=== PATIENT | female | born 1995 | race Hispanic/Latino ===

== ENCOUNTER 2019-07-02 04:25 | Emergency (ER) | payer OTHER ==
[~2019-07-02] VITALS: Ht 170.2 cm; Wt 77.1 kg
--- OUTSIDE RECORDS SUMMARY | 2019-07-02 04:27 | XMS REPORT ---
Author Author [facility] Address Unknown Phone Unavailable Care Team Providers Care Supervisor Clam Bed Name Role Phone Unavailable Unavailable Payers Payer Name Policy Type Policy Number Effective Date Expiration Date Problems This patient has no known problems. Allergies, Adverse Reactions, Alerts Allergy Name Allergy Type Status Severity Reaction(s) Onset Date Inactive Date Treating Clinician Comments No Known Allergies DA Active U 2019-07-01 00:00:00 No Known Allergies DA Active U 2018-02-22 00:00:00 No Known Allergies DA Active U 2018-01-12 00:00:00 No Known Allergies DA Active U 2017-10-01 00:00:00 Medications This patient has no known medications. Encounters Start Date/Time End Date/Time Encounter Type Admission Type Attending [facility] Care Department Encounter ID 2018-08-22 11:55:00 2018-08-22 11:55:00 Emergency E [facility]NE [id number] Results Test Description Test Time Test Comments Text Results Atomic Results Result Comments - CT MAXIFAC W/CONTRAST 2019-07-01 10:59:00 Name: SHAUNA PAYTON [facility] FSED : 1995 Age/S: 24 / F [id number] [facility] [address] Unit #: [id number] Loc: [address] Phys: Nicole Stahl MD [place], [place] [address] Acct: [id number] Dis Date: Status: REG ER PHONE #: Exam Date: 07/01/2019 1041 FAX #: Reason: left facial pain/swelling EXAMS: CPT CODE: [id number] CT MAXIFAC W/CONTRAST [address]4441 EXAM: - CT MAXIFAC W/CONTRAST HISTORY: left facial pain/swelling TECHNIQUE: Axial images were obtained through the facial bones and orbits with IV contrast. Sagittal and coronal multiplanar reconstructions were created from the data. COMPARISON: None FINDINGS: The facial bones, including the mandible, are within normal limits. Specifically, there is no evidence of fracture, dislocation, or aggressive osseous lesions. The globes are normal in size, contour, and position. The course and caliber of the optic nerve sheath complex is within normal limits. The extraocular muscles, intraconal fat, and extraconal fat are within normal limits. The lacrimal glands appear normal. The orbital quinonez and optic canals are normal. The visualized intracranial structures appear normal. No lesion of the visualized skull base or calvarium is present. The visualized paranasal sinuses and tympanomastoid cavities are unopacified. IMPRESSION: Normal face CT. Specifically no stranding in the soft tissues and no abscess in the left side of the face to explain the patient's facial swelling. Location: [facility] at 1059 Reported and signed by: Tristan Isaac MD CC: Nicole Stahl MD Technologist:ADONAY CHAHAL RT(R)(CT) CTDI: DLP: Trnscb Date/Time: 07/01/2019 (0403) [id number] Orig Print D/T: S: 07/01/2019 (4529) PAGE 1 Signed Report BASIC METABOLIC PANEL 2019-07-01 10:16:00 SODIUM (test code=NA) 138 mmol/L 128-145 POTASSIUM (test code=K) 3.9 mmol/L 3.5-5.1 CHLORIDE (test code=CL) 101.0 mmol/L 98-107 CARBON DIOXIDE (test code=CO2) 24.1 mmol/L 22-29 ANION GAP (test code=GAP) 17 mmol/L 10-20 GLUCOSE (test code=GLU) 112 mg/dL 70-110 BLOOD UREA NITROGEN (test code=BUN) 10 mg/dL 7-22 GLOMERULAR FILTRATION RATE (test code=GFR) > 60 mL/min >=60 Estimated GFR by using Modified MDRD formula.Chronic kidney disease is defined as either kidney damageor GFR <60 mL/min/1.73 m2 for >3 months. CREATININE (test code=CREAT) 0.83 mg/dL 0.55-1.3 BUN/CREATININE RATIO (test code=BUN/CREA) 12.0 10-20 CALCIUM (test code=CA) 8.6 mg/dL 8.0-10.5 HCG SERUM [id number] 10:16:00* Test Item Value Reference Range Comments HCG SERUM QUAL (test code=HCGQL) NEGATIVE NEGATIVE This HCGQL test is NOT applicable for MALE patients.Check with nurse about probable order error.If Tumor Marker Test needed, nurse should order test "HCGTU"(Test #550.76501) BASIC METABOLIC [id number] 10:12:00* Test Item Value Reference Range Comments SODIUM (test code=NA) mmol/L 136-145 POTASSIUM (test code=K) mmol/L 3.5-5.1 CHLORIDE (test code=CL) mmol/L 98-107 CARBON DIOXIDE (test code=CO2) mmol/L 21-32 ANION GAP (test code=GAP) mmol/L 10-20 GLUCOSE (test code=GLU) mg/dL 70-110 BLOOD UREA NITROGEN (test code=BUN) mg/dL 7-22 GLOMERULAR FILTRATION RATE (test code=GFR) mL/min >=60 CREATININE (test code=CREAT) mg/dL 0.55-1.02 BUN/CREATININE RATIO (test code=BUN/CREA) 10-20 CALCIUM (test code=CA) mg/dL 8.5-10.1 HCG SERUM [id number] 10:12:00* Test Item Value Reference Range Comments HCG SERUM QUAL (test code=HCGQL) NEGATIVE NEGATIVE This HCGQL test is NOT applicable for MALE patients.Check with nurse about probable order error.If Tumor Marker Test needed, nurse should order test "HCGTU"(Test #550.04060) CBC W/AUTO [id number] 10:05:00* Test Item Value Reference Range Comments WHITE BLOOD CELL (test code=WBC) 6.9 K/mm3 4.5-12.5 RED BLOOD CELL (test code=RBC) 4.79 mill/mm3 3.7-5.2 HEMOGLOBIN (test code=HGB) 14.4 gram/dL 11.5-15.5 HEMATOCRIT (test code=HCT) 41.6 % 36.0-46.0 MEAN CELL VOLUME (test code=MCV) 86.8 fL 80-98 MEAN CELL HGB (test code=MCH) 30.1 picogram 27.0-33.0 MEAN CELL HGB CONCETRATION (test code=MCHC) 34.6 gram/dL 33.0-36.0 RED CELL DISTRIBUTION WIDTH (test code=RDW) 12.9 % 11.6-16.2 RED CELL DISTRIBUTION WIDTH SD (test code=RDW-SD) 40.9 fL 37.0-51.0 PLATELET COUNT (test code=PLT) 223 K/mm3 150-450 MEAN PLATELET VOLUME (test code=MPV) 9.3 fL 6.7-11.0 NEUTROPHIL % (test code=NT%) 68.4 % 39.0-69.0 LYMPHOCYTE % (test code=LY%) 20.7 % 25.0-55.0 MONOCYTE % (test code=MO%) 7.4 % 0.0-10.0 EOSINOPHIL % (test code=EO%) 3.0 % 0.0-5.0 BASOPHIL % (test code=BA%) 0.4 % 0.0-1.0 NEUTROPHIL # (test code=NT#) 4.72 K/mm3 1.8-7.7 LYMPHOCYTE # (test code=LY#) 1.43 K/mm3 1.0-5.0 MONOCYTE # (test code=MO#) 0.51 K/mm3 0-0.8 EOSINOPHIL # (test code=EO#) 0.21 K/mm3 0.0-0.5 BASOPHIL # (test code=BA#) 0.03 K/mm3 0.0-0.2 MANUAL DIFF REQUIRED (test code=MDIFF) NO
[2019-07-02] MEDS ORDERED: AMOXICILLIN/CLAVULANATE K 875 MG TAB PO STA (04:46)
[2019-07-02] MEDS ORDERED: ONDANSETRON HCL 4 MG ORAL DISINTEGRATING TAB PO ONE (05:00)
[2019-07-02] MEDS ORDERED: ACETAMINOPHEN 325 MG TAB PO ONE (05:00)
== END 2019-07-02 05:30 | disposition home or self-care (01) ==
LOC: ER 04:25
DX: H66.002 Acute suppurative otitis media without spontaneous rupture of ear drum, left ear (principal)
CPT/HCPCS: 99282; Q0162